=== PATIENT | female | born 1955 | race Caucasian/White ===

== ENCOUNTER 2020-07-22 18:35 | Emergency (ER) | payer BC ==
--- OUTSIDE RECORDS SUMMARY | 2020-07-22 18:37 | XMS REPORT | Clinical Summary ---
:1955 Author Organization [facility] Address [address] [place] [address] Care Team Providers Name Role Phone Asked, No Pcp Primary Care Provider Unavailable Allergies Active Allergy Reactions Severity Noted Date Comments Codeine Other (See Comments) High 02/20/2017 [place] Medications Medication Sig Dispensed Refills Start Date End Date Status lisinopril Take 20 mg by 0 Activ e (PRINIVIL,ZESTRIL) 20 mouth daily. mg tablet simvastatin (ZOCOR) 40 Take 40 mg by 0 Active MG tablet mouth nightly. multivitamin with Take 1 tablet by 0 Active minerals tablet mouth daily. Active Problems Not on file Social History Tobacco Use Types Packs/Day Years Used Date Never Assessed Sex Assigned at Date Recorded Not on file Job Start Date Occupation Industry Not on file Not on file Not on file Travel History Travel Start Travel End No recent travel history available. Last Filed Vital Signs Not on file Plan of Treatment Health Maintenance Due Date Last Done Comments CERVICAL CANCER SCREENING 1978 BREAST CANCER SCREENING 2007 COLONOSCOPY SCREENING 2007 SHINGLES VACCINES (#1) 2007 INFLUENZA VACCINE 08/19/2020 Results Not on fileafter 07/22/2019 (Work) [id number] Advance Directives For more information, please contact: [phone] Type Date Recorded Patient Manager Icu Explanati on Advance Directives, Living Will 02/20/2017 9:07 AM and Medical Power of Recreational Counselor
--- OUTSIDE RECORDS SUMMARY | 2020-07-22 18:37 | XMS REPORT | Continuity of Care Document ---
:1955 Author Organization [facility] [employer] [place] Care Team Providers Name Role Phone [facility] Information [place] Unavailable Un available Problems Problem Status Onset Classification Date Comments Sourc e Date Reported Z12.31 Active 09/03/[address] 19 SCREENING Active 09/20/[address] 15 Hyperlipidemia Active 10/31/2013 [place] [facility] Hypertension Active 10/31/2013 [facility] Encounter for 09/21/2019 [facility] [place]ogram for malignant neoplasm of breast Medications Medication Details Route Status Patient Ordering Order Source Instructions Provider Date Levaquin 500 MG (Active) Active [facility] Oral Tablet [facility] Nasonex 50 (Active) Active [facility] MCG/ACT Nasal [facility] Suspension Simvastatin 20 (Active) Active [facility] MG Oral Tablet Physician s Singulair 10 MG (Active) Active [facility] Oral Tablet Physicians Triamterene-HCTZ (Active) Active [facility] 37.5-25 MG Oral Physicia ns Tablet Xyzal 5 MG Oral (Active) Active [facility] Tablet [facility]icians Montelukast (Active) Active [facility] Sodium 10 MG Physicians Oral Tablet Pantoprazole (Active) Active [facility] Sodium 40 MG Physicians Oral Tablet Delayed Release Citracal (Active) Active [facility] Calcium+D TB24 Physician s Multivitamins (Active) Active [facility] CAPS Physicians Acidophilus Oral (Active) Active [facility] Capsule Physicians Zolpidem (Active) Active [facility] Tartrate 5 MG [facility] Oral Tablet Allergies, Adverse Reactions, Alerts Substance Category Reaction Severity Reaction Status Date Comments S ource type Reported codeine<zendejas Assertion Drug Active Data M H p>1</sup> allergy 1 [place] [facility] on 01/19/16. Originally documented as CODEINE. Gastrointest inal problems, e.g., nausea, vomiting, diarrhea No Known drug drug Active [facility] Drug allergy allergy Physicia ns Allergies Immunizations No Data Provided for This Section Results No Data Provided for This Section Pathology Reports No Data Provided for This Section Diagnostic Reports Report Value Date Source Breast Mammo Scrn [place] 09/19/[address] [facility] CAD MA BILATERAL DIGITAL SCREENING MAMMOGRAM 3D/2D WITH CAD: 09/19/2019 CLINICAL: /Routine. Current study was evaluated with a Blockman d Detection (CAD) system. COMPARISON:Comparison is mad e to exams dated: 10/09/2015 mammogram, 03/20/2014 mammogram, 12/27/2012 mammogram - [facility], and 03/15/2011 mammogram - [facility]. TECHNIQUE: Digital Breast To mosynthesis was performed and utilized for Interpretation. CloudBase3 Version 1.3 was utilized for computer aided detection. FINDINGS: There are scattered fibroglandular densities in both breasts. There are benign calcifications in both breasts. No significant masses, calci fications, or other findings are seen in either breast. There has been no significant interval change. IMPRESSION: BENIGN RECOMMENDATION:There is no m ammographic evidence of malignancy. A 1 year screening mammogram is recommended.(09/19/2020) This exam was interpreted at [id number] for [facility]. Gary Roque M.D. jt/penrad:09/19/2019 09:41:37 Railroad Shop Inspector(s): Shawn Saleem [facility] letter sent: BI-RADS 1/2 Mammogram BI-RADS: 2 Benign Digital Mammo - DIGITAL MAMMO SCREENING [place] MA 10/09/2015 [facility] [place] BILATERAL DIGITAL SCREENING MAMMOGRAM WITH CAD: 10/09/2015 CLINICAL: Routine. Current study was evaluated with a Blockman d Detection (CAD) system. Comparison is made to exams dated: 03/20/2014 mammogram, 12/27/2012 mammogram - [facility], 03/15/2011 mammogram - [facility], 02/15/2008 mammogram - [facility] and 09/23/2005. There are scattered fibroglandular densities in both breasts. There are benign calcifications in both breasts. No significant masses, calci fications, or other findings are seen in either breast. There has been no significant interval change. IMPRESSION: BENIGN There is no mammographic boris dence of malignancy. A 1 year screening mammogram is recommended. Kayli Barrios M.D. ap/penrad:10/11/2015 09:56:20 Railroad Shop Inspector: Christie Leos, [facility] This exam was dictated and i nterpreted by [id number] for [facility]. letter sent: Normal exam Mammogram BI-RADS: 2 Benign Digital Mammo - DIGITAL MAMMO SCREENING [place] MA 03/20/2014 [facility] Screening [place] BILATERAL DIGITAL SCREENING MAMMOGRAM WITH CAD: 03/20/2014 CLINICAL: Screening. Current study was evaluated with a Blockman d Detection (CAD) system. Comparison is made to exams dated: 12/27/2012 mammogram - [facility], 03/15/2011 mammogram - [facility], 02/15/2008 mammogram - [facility] and 09/23/2005. There are scattered fibroglandular densities in both breasts. There are benign calcifications in both breasts. No significant masses, calci fications, or other findings are seen in either breast. There has been no significant interval change. IMPRESSION: BENIGN There is no mammographic boris dence of malignancy. A screening mammogram in one year is recommended. Gary murray/penrad:03/23/2014 07:54:49 Railroad Shop Inspector: Yecenia Mahoney, [facility] This exam was dictated and i nterpreted by [id number] for [facility]. letter sent: Normal exam Mammogram BI-RADS: 2 Benign Consultation Notes No Data Provided for This Section Discharge Summaries No Data Provided for This Section History and Physicals No Data Provided for This Section Vital Signs No Data Provided for This Section Encounters Location Location Encounter Encounter Reason Attending ADM [place] Stat Source Details Type Number For Provider Date Date Visit AUDIT [id number] 04/30 /2012 [place], [id number] 05/01 05[place]01 [place] Provider: TERESO Peace , Status: Pen, Time: 9:00 AM AUDIT [id number] 05/01 /2012 [place] EST, [id number] 10/30 05/01 [place] Provider: TERESO Peace , Status: Pen, Time: 9:30 AM AUDIT [id number] 10/30 /2012 [place] AUDIT [id number] 10/312012 [facility] [id number] Taryn 03/20 03/21 [facility] /2013 [facility] EST, [id number] 10/29 10/31 [place] Provider: /2013 TERESO Peace , Status: Pen, Time: 9:30 AM [facility]patient [id number] Taryn 10/09 10/10 [facility] /2014 [facility] Outpatient [id number] Taryn 09/19 09/20 [facility] /2018 [facility] Procedures No Data Provided for This Section Assessment and Plan No Data Provided for This Section Plan of Care No Data Provided for This Section Social History Social History Date Source Social History TypeResponse 09/20/2019 [facility] Activities Of Daily Living 10/31/2013 [facility] (Active) Caffeine Use Comments: 1 cup of coffee (Active) Former Smoker Comments: quit at age 40 (V15.82); (Active) Family History Value Date Source Maternal history of Heart 10/31/2013 [facility] Disease (V17.49); (Active) Maternal history of Diabetes Mellitus (V18.0); (Active) Maternal grandmother's history of Stroke Syndrome (V17.1); (Active) Maternal history of Heart 10/30/2013 [facility] Disease (V17.49); (Active) Maternal history of Diabetes Mellitus (V18.0); (Active) Maternal grandmother's history of Stroke Syndrome (V17.1); (Active) Maternal history of Heart 05/01/2013 [facility] Disease (V17.49); (Active) Maternal history of Diabetes Mellitus (V18.0); (Active) Maternal grandmother's history of Stroke Syndrome (V17.1); (Active) Advance Directives Order Name Results Value Date Source Advance Directives Advance Directives No Advance 10/31/2013 [facility] Directives available. Advance Directives Advance Directives No Advance 10/30/2013 [facility] Directives available. Advance Directives Advance Directives No Advance 05/01/2013 [facility] Directives available. Advance Directives Advance Directives No Advance 05/01/2013 [facility] Directives available. Functional Status No Data Provided for This Section
--- OUTSIDE RECORDS SUMMARY | 2020-07-22 18:37 | XMS REPORT | Continuity of Care Document ---
:1955 Author Organization [facility] t Address [address] [place] [address] Care Team Providers Name Role Phone Asked, Pcp Primary Care Physician Unavailable BRITTON Attending Clinician Unavailable Marilin Kyle Attending Clinician Problems Condition Condition Condition Status Onset Resolution Last Treating Co mments Source Name Details Category Date Date Treatment Clinician Date Z12.31 Diagnosis Active 2018-112019-09-19 Mem oria 0-16 09:08:00 l Z12.31 00:00: [place] 00 Active 09/03/2019 [place] SCREENING Diagnosis Active 2014-112015-10-09 Memoria 1-02 08:32:00 l 00:00: [place] SCREENING 00 Active 09/20/2015 [place] Encounter Problem 2019-09-21 Me moria for 23:35:58 l screening [place]zo mammogram Encounter for for malignant screening neoplasm mammogram of breast for malignant neoplasm of breast 09/21/2019 [place] Hyperlipid Problem Active 2013-10-31 M emoria emia 22:01:03 l [place] Hyperlipid emia Active 3 [facility] Hypertensi Problem Active 2013-10-31 M emoria on 22:01:03 l [place] Hypertensi on Active 10/31/2013 [facility] Allergies, Adverse Reactions, Alerts Allergy Allergy Status Severity Reaction(s) Onset Inactive Treating Comm ents Source Name Type Date Date Clinician Marcell Ruiz Active Other (See Andresina Eduardo ty to Comments) 4-04 tion [facility] adverse 00:00: st reaction 00 s to drug codeine< codeine< Active Memori a sup>1</s sup>1</s 3-16 l up> up> 05:00: [place]zo 00 No Known No Known Active Memori a Drug Drug l Allergie Allergharman Carter n s s Family History Family Member Diagnosis Comments Start Date Stop Date Source Unknown Family Family History 2013-05-01 2013-05-01 Memori al Renzo Member 17:28:36 17:28:36 Social History Social Habit Start Date Stop Date Quantity Comments Source Sex [facility]igned [facility] Social [facility] 2013-10-31 [facility]01:03 Medications Ordered Filled Start Stop Current Ordering Indication Dosage Frequency Signature Comments Components Source Medication Medication Date Date Medication? Clinician (SIG) Name Name lisinopril Yes 20mg QD Take 20 mg [place] (PRINIVIL,Z 4-04 by mouth Meth michele ESTRIL) 20 09:35: daily. st mg tablet 41 simvastatin Yes 40mg QD Take 40 mg Eduardo (ZOCOR) 40 4-04 by mouth Metho di MG tablet 09:35: nightly. st 41 multivitami Yes 1{tbl} QD Take 1 [place] with 4-04 tablet by Methodi minerals 09:35: mouth st tablet 41 daily. Nasonex 50 2012-11 Yes (Active) Me moria MCG/ACT 2-13 l Nasal 22:01: [place] Suspension 03 Xyzal 5 MG 2012-11 Yes (Active) Me moria Oral Tablet 2-13 l 22:01: [place] 03 Montelukast 2012-11 Yes (Active) M emoria Sodium 10 2-13 l MG Oral 22:01: [place] Tablet 03 Citracal 2012-11 Yes (Active) Mike abdias Calcium+D 2-13 l TB24 22:01: [place] 03 Multivitami 2012-11 Yes (Active) M emoria ns CAPS 2-13 l 22:01: [place] 03 Acidophilus 2012-11 Yes (Active) M emoria Oral 2-13 l Capsule 22:01: [place] 03 Simvastatin Yes (Active) M emoria 20 MG Oral 6-13 l Tablet 17:28: [place] 36 Triamterene Yes (Active) M emoria -HCTZ 6-13 l 37.5-25 MG 17:28: [place] Oral Tablet 36 Pantoprazol Yes (Active) M emoria e Sodium 40 6-13 l MG Oral 17:28: [place] Tablet 36 Delayed Release Zolpidem Yes (Active) Mike abdias Tartrate 5 6-13 l MG Oral 17:28: [place] Tablet 36 Levaquin Yes (Active) Mike abdias 500 MG Oral 6-13 l Tablet 00:31: [place] 34 Singulair Yes (Active) Mem oria 10 MG Oral 6-13 l Tablet 00:31: [place] 34 Procedures This patient has no known procedures. Plan of Care Planned Activity Planned Date Details Comments Source Future Scheduled 2020-08-19 INFLU[place]ZA VACCINE [place] [facility] 00:00:00 [code = INFLUENZA VACCINE] Future Scheduled 2007 BREAST CANCER [facility] Test 00:00:00 SCREENING [code = BREAST CANCER SCREENING] Future Scheduled 2007 COLONOSCOPY SCREENING [facility] 00:00:00 [code = COLONOSCOPY SCREENING] Future Scheduled 2007 SHINGLES VACCINES [place] [facility] 00:00:00 (#1) [code = SHINGLES VACCINES (#1)] Future Scheduled 1978 Screening for [facility] Test 00:00:00 malignant neoplasm of cervix (procedure) [code = 314464123] Encounters Start End Encounter Admission Attending Care Care Encounter Source Date/Time Date/Time Type Type Clinicians Facility Department ID 2019-09-19 2019-09-19 Outpatient RICHA Kyle [id number] 09:00:00 23:59:00 Taryn Gaston 2019-09-19 2019-09-19 Outpatient [facility] [id number] 09:00:00 09:00:00 [facility] 2015-10-09 2015-10-09 Outpatient RICHA Kyle [id number] 08:26:00 23:59:00 Taryn Gaston 2014-03-20 2014-03-20 Outpatient ROMEO Kyle [id number] 15:10:00 23:59:00 Taryn Gaston 02 2013-10-31 2013-10-31 [facility] [id number] 16:01:03 16:01:03 2013-10-30 2013-10-30 [facility] [id number] 10:01:54 10:01:54 2013-05-01 2013-05-01 [facility] [id number] 12:28:56 12:28:36 2013-04-30 2013-04-30 [facility] [id number] 19:31:55 19:31:34 Results Test Description Test Time Test Comments Results Result Sourc e Comments CT ABDOMEN/PELVIS 2019-10-09 W 13:09:00 [place] [address] Patient Name: KOKO KOCH MR #: [id number] : 1955 Age/Sex: 64/F Req #: [id number] [facility] Physician: Ordered by: MINA BRITTON MD Report #: [id number] Location: CT Room/Bed: Procedure: [id number] CT/CT ABDOMEN/PELVIS W Exam Date: 10/09/19 Exam Time: 1250 REPORT STATUS: Signed EXAM: CT Abdomen and Pelvis WITH intravenous contrast INDICATION: Colon Mass COMPARISON: None. TECHNIQUE: Abdomen and pelvis were scanned utilizing a multidetector helical scanner from the lung base to the pubic symphysis after administration of IV contrast. Coronal and sagittal reformations were obtained. Routine protocol was performed. Scan was performed during portal venous phase. IV CONTRAST: 100mL of Isovue 370 ORAL CONTRAST: Gastrografin RADIATION DOSE: Total DLP: 848.4 mGy*cm Dose modulation, iterative reconstruction, and/or weight based adjustment of the mA/kV was utilized to reduce the radiation dose to as low as reasonably achievable. FINDINGS: LOWER THORAX: Normal. HEPATOBILIARY: Diffuse hepatic steatosis. No focal liver lesion. No biliary ductal dilation. Cholelithiasis without CT evidence of cholecystitis. SPLEEN: No splenomegaly. PANCREAS: No focal masses or ductal dilatation. ADRENALS: No adrenal nodules. KIDNEYS/URETERS: No hydronephrosis or renal calculi. No solid renal mass lesion. 1.3 cm right upper pole simple cyst. PELVIC ORGANS/BLADDER: Unremarkable. PERITONEUM / RETROPERITONEUM: No free air or fluid. LYMPH NODES: No lymphadenopathy. VESSELS: Scattered atherosclerotic calcifications of the nonaneurysmal abdominal aorta and major branches. GI TRACT: Severe diffuse diverticulosis including of the right colon. No CT evidence of diverticulitis. No abnormal bowel wall thickening or bowel obstruction. Normal appendix. BONES AND SOFT TISSUES: Unremarkable. IMPRESSION: Severe diffuse diverticulosis including right colon diverticulosis. No CT evidence of diverticulitis. No abnormal bowel wall thickening or bowel obstruction. Normal appendix. Diffuse hepatic steatosis. Cholelithiasis without CT evidence of cholecystitis. Signed by: Hunter Maloney MD on 10/09/2019 1:15 PM Dictated By: HUNTER MALONEY MD 131 Transcribed By: NELY on 10/09/191314 COPY TO: MINA BRITTON MD
[2020-07-22] MEDS ORDERED: NA CHLORIDE 0.9% 1,000 ML ONE (19:29)
[2020-07-22 19:33] LABS: Absolute Lymphocytes (CBC) 1.6 K/uL (0.7-4.9); Basophils % 0.7 % (0-1.3); Lymphocytes % 22.2 % (15.3-44.8); MPV 8.8 fL (7.6-11.3); RBC Red Blood Cell Count 4.54 M/uL (3.86-4.86)
[2020-07-22 19:36] LABS: Potassium 3.8 mmol/L (3.5-5.1)
[2020-07-22 20:00] LABS: Urine Blood NEGATIVE (NEG); Urine Glucose NEGATIVE (NEG); Urine Protein NEGATIVE (NEG)
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
[2020-07-24 11:48] VITALS: O2SAT 99
[2020-07-24 11:51] VITALS: BP 138/89; TEMP 98.2
== END 2020-07-22 21:39 | disposition home or self-care (01) ==
LOC: ER 18:35
DX: S30.1XXA Contusion of abdominal wall, initial encounter (principal); V49.50XA Passenger injured in collision with unspecified motor vehicles in traffic accident, initial encounter; I10 Essential (primary) hypertension
CPT/HCPCS: 96361; 85025; 80048; 36415; 81003; 71260; 74177; 96360; 99284; Q9967; J7030